=== PATIENT | female | born 1970 | race Caucasian/White ===

== ENCOUNTER 2022-09-28 09:40 | Inpatient (IN) | payer OTHER, SELFPAY ==
[2022-09-28] VITALS (18 sets, daily range): BP systolic 99–139; BP diastolic 59–85; PULSE 105–139; RESP 15–26; TEMP 36.6–38.1; O2SAT 93–100; BMI 35.9
[2022-09-28 10:06] LABS: Add Manual Diff / Slide Review NO; Basophils Absolute Auto 0 /uL (0-100); Basophils Percent Auto 0.1 % (0-2); Eosinophils Absolute Auto 200 /uL (0-450); Eosinophils Percent Auto 1.1 % (2-4); Hematocrit 44.8 % (36-46); Lymphocytes Absolute Auto 500 /uL (1100-4500); Mean Corpuscular HGB Conc 33.6 % (30-36); Mean Corpuscular Volume 86.3 fL (80-100); Monocytes Absolute Auto 900 /uL (0-900); Neutrophils Absolute Auto 21300 /uL (1500-7000); Neutrophils Percent Auto 92.8 % (50-75); Platelet Count 324 X10^3/uL (150-400); Red Blood Cell Count 5.19 X10^6/uL (4.0-5.2); Red Cell Distribution Width 14.2 % (11.6-14.8); White Blood Cell Count 22.9 X10^3/uL (4.5-11.0)
[2022-09-28] MEDS: SODIUM CHLORIDE 0.9% 1,000 ML 1000 ML IV ×3 (10:06→14:39)
[2022-09-28] MEDS: ONDANSETRON 4 MG/2 ML INJ IV ×4 (10:06→21:44)
[2022-09-28 10:18] LABS: Alanine Aminotransferase 54 IU/L (<35); Albumin 4.7 g/dL (3.5-5.0); Albumin Globulin Ratio 1.4 (1.0-2.8); Alkaline Phosphatase 184 U/L (38-126); Aspartate Aminotransferase 52 IU/L (14-36); BUN Creatinine Ratio 26.3 (6-22); Bilirubin Total 0.7 mg/dL (0.2-1.3); Blood Urea Nitrogen 15 mg/dL (7-17); Carbon Dioxide 24 mmol/L (22-32); Chloride 99 mmol/L (98-107); Estimated Glomerular Filt Rate > 60 mL/min (>60); Globulin 3.4 g/dL (1.7-4.1); Glucose 329 mg/dL (70-100); HEMOLYSIS < 15 (0-50); Lipase 171 U/L (23-300); Potassium 3.8 mmol/L (3.4-5.1); Sodium 137 mmol/L (137-145); Total Protein 8.1 g/dL (6.3-8.2)
[2022-09-28 10:32] LABS: COVID19 -Nasal RAPID Negative (Negative)
[2022-09-28 11:30] LABS: Bacteria Urine None Seen; Culture Indicated Urine Cult Not Indicated; RBC Urine None Seen (0-5/HPF); Squamous Epithelial Cell Urine 0-1 /HPF (0-5/HPF); WBC Urine 0-1/HPF (0-5/HPF)
--- NOTE | 2022-09-28 12:00 | ED_ITS ---
HPI - General Adult General Chief complaint: Diabetic Problem Stated complaint: N high sugar rapid heartbeat Time Seen by Provider: 09/28/22 10:00 Source: patient and family Mode of arrival: Ambulatory History of Present Illness HPI narrative: 52-year-old woman with a history of diabetes currently on [place] [facility] [place]. Notes that she is been eating quite a bit more including sugars while she is been visiting and last night began having significant nausea followed by dramatic vomiting through most of the evening. This morning her blood sugar was in the 300 range and her heart rate was in the 130 range. Her partner brought her in concerned with the blood sugar. She reports some mild diffuse abdominal pain. She notes that the vomiting is bilious this morning. There is no blood. She is not had any diarrhea. Did not complain of headache, fever, cough. She felt she was doing well yesterday. She is had no recent palpitations, chest pain, lower extremity edema. Related Data Allergies Allergy/AdvReac Type Severity Reaction Status Date / Time Penicillins Allergy Rash Verified 09/28/22 09:53 Sulfa (Sulfonamide Allergy Rash Verified 09/28/22 09:53 Antibiotics) Review of Systems Review of Systems Narrative: Remainder of complete review of systems is otherwise unremarkable except for that included in the HPI. Patient History Medical History (Updated 09/28/22 @ 12:25 by Judie Messina MD) Diabetes Social History Smoking Status: Never smoker Smoking Status: Never smoker alcohol intake frequency: a few times a month Substance Use Type: marijuana Exam Initial Vital Signs Initial Vital Signs: Vital Signs Temperature 98 F 09/28/22 09:50 Pulse Rate 139 H 09/28/22 09:50 Respiratory Rate 23 09/28/22 09:50 Blood Pressure 139/85 09/28/22 09:50 Pulse Oximetry 99 09/28/22 09:50 Oxygen Delivery Method 09/28/22 09:50 General: Appears to feel unwell slightly flushed but not in acute distress. Able to give a complete and coherent history. Well-nourished well-developed HEENT: Dry mucous membranes, normal sclera with reactive pupils, Neck: No JVD, supple Respiratory: Lungs are clear to auscultation, no wheezing no rales no rhonchi. Full and symmetrical air movement Cardiac: Regular rate and rhythm no murmurs no bruits Abdomen: Soft, mild diffuse tenderness without rebound or guarding, good bowel tones, no flank pain Skin: Warm and dry, no rashes Neurologic: Grossly neurologically intact with no obvious asymmetries or abnormalities Extremities: No trauma, well perfused Psych: Cooperative, appropriate insight and affect Course Orders Ordered: ED Orders 09/28/22 09:53 EKG-12 Lead Stat 09/28/22 10:03 Complete Blood Count AUTO DIFF Stat Comprehensive Metabolic Panel Stat Lipase Stat 09/28/22 10:14 COVID19 -Nasal RAPID/Pre-Proc Stat 09/28/22 11:21 Urine Microscopic Stat 09/28/22 12:09 CT abdomen pelvis w con Stat XR chest 1V Stat Lipase Stat Troponin I Stat 09/28/22 12:17 Respiratory Panel (Film Array) Stat 09/28/22 12:45 Blood Culture Stat 09/28/22 12:52 Lactate (Lactic Acid) Stat Sodium Chloride (Normal Saline 0.9%) 1,000 mls @ 1,000 mls/hr IV BOLUS ONE Stop: 09/28/22 15:05 Discontinued Medications Sodium Chloride (Normal Saline 0.9%) 1,000 mls @ 1,000 mls/hr IV BOLUS ONE Stop: 09/28/22 10:59 Last Infusion: 09/28/22 10:49 Dose: 0 mls/hr Documented By: Admin: 09/28/22 10:06 Dose: 1,000 mls/hr Documented By: VIVIANE Sodium Chloride (Normal Saline 0.9%) 1,000 mls @ 1,000 mls/hr IV BOLUS ONE Stop: 09/28/22 13:07 Last Admin: 09/28/22 12:31 Dose: 1,000 mls/hr Documented By: LAKIA Ceftriaxone Sodium 2,000 mg/ (Sodium Chloride) 100 mls @ 200 mls/hr IV NOW ONE Stop: 09/28/22 13:22 Last Admin: 09/28/22 13:34 Dose: 200 mls/hr Documented By: LAKIA Metronidazole (Flagyl) 500 mg in 100 mls @ 100 mls/hr IV NOW ONE Stop: 09/28/22 14:20 Ondansetron HCl (Ondansetron 4 Mg/2 Ml Inj) 4 mg IV NOW ONE Stop: 09/28/22 10:01 Last Admin: 09/28/22 10:06 Dose: 4 mg Documented By: VIVIANE Ondansetron HCl (Ondansetron 4 Mg/2 Ml Inj) 4 mg IV NOW ONE Stop: 09/28/22 14:07 Last Admin: 09/28/22 14:21 Dose: 4 mg Documented By: LAKIA Pantoprazole Sodium (Pantoprazole 40 Mg Vial) 40 mg IV NOW ONE Stop: 09/28/22 14:07 Last Admin: 09/28/22 14:21 Dose: 40 mg Documented By: LAKIA Vital Signs Vital signs: Vital Signs - 8 hr 09/28/22 09:50 09/28/22 09:57 09/28/22 10:00 Temperature 98 F Pulse Rate 139 H 123 H Respiratory Rate 23 23 Blood Pressure 139/85 137/77 Pulse Oximetry 99 100 Oxygen Delivery Method Room Air 09/28/22 10:00 09/28/22 10:30 09/28/22 10:30 Temperature Pulse Rate 126 H 115 H Respiratory Rate 15 16 Blood Pressure 135/65 Pulse Oximetry 99 93 Oxygen Delivery Method 09/28/22 12:01 09/28/22 12:01 09/28/22 12:34 Temperature 99.5 F Pulse Rate 114 H 111 H Respiratory Rate 26 H Blood Pressure 129/65 Pulse Oximetry 96 Oxygen Delivery Method Room Air 09/28/22 12:59 09/28/22 12:59 09/28/22 13:00 Temperature Pulse Rate 110 H Respiratory Rate 24 Blood Pressure 109/62 108/59 L Pulse Oximetry 97 Oxygen Delivery Method 09/28/22 13:00 09/28/22 13:30 09/28/22 13:30 Temperature Pulse Rate 108 H 113 H Respiratory Rate 16 25 H Blood Pressure 110/60 Pulse Oximetry 97 95 Oxygen Delivery Method 09/28/22 14:00 09/28/22 14:00 09/28/22 14:30 Temperature Pulse Rate 113 H Respiratory Rate 20 Blood Pressure 119/64 119/63 Pulse Oximetry 97 Oxygen Delivery Method 09/28/22 14:30 Temperature Pulse Rate 108 H Respiratory Rate 16 Blood Pressure Pulse Oximetry 97 Oxygen Delivery Method Room Air Medical Decision Making Lab Data Result diagrams: 09/28/22 10:03 09/28/22 10:03 Labs: Lab Results 09/28/22 09/28/22 09/28/22 Range/Units 10:03 10:03 10:14 WBC 22.9 H (4.5-11.0) X10^3/uL RBC 5.19 (4.0-5.2) X10^6/uL Hgb 15.0 (12.0-16.0) g/dL Hct 44.8 (36-46) % MCV 86.3 (80-100) fL MCH 29.0 (26-34) PG MCHC 33.6 (30-36) % RDW 14.2 (11.6-14.8) % Plt Count 324 (150-400) X10^3/uL Neut % (Auto) 92.8 H (50-75) % Lymph % (Auto) 2.0 L (25-40) % [place] % (Auto) 4.0 (3-14) % Eos % (Auto) 1.1 L (2-4) % Baso % (Auto) 0.1 (0-2) % Neut # (Auto) 59260 H (7180-0121) /uL Lymph # (Auto) 500 L (6399-2937) /uL [place] # (Auto) 900 (0-900) /uL Eos # (Auto) 200 (0-450) /uL Baso # (Auto) 0 (0-100) /uL Sodium 137 (137-145) mmol/L Potassium 3.8 (3.4-5.1) mmol/L Chloride 99 (98-107) mmol/L Carbon Dioxide 24 (22-32) mmol/L BUN 15 (7-17) mg/dL Creatinine 0.57 (0.52-1.04) mg/dL Estimated GFR > 60 (>60) mL/min BUN/Creatinine Ratio 26.3 H (6-22) Glucose 329 H (70-100) mg/dL Lactate (0.7-2.1) mmol/L Calcium 9.0 (8.4-10.2) mg/dL Total Bilirubin 0.7 (0.2-1.3) mg/dL AST 52 H (14-36) IU/L ALT 54 H (<35) IU/L Alkaline Phosphatase 184 H (38-126) U/L Total Protein 8.1 (6.3-8.2) g/dL Albumin 4.7 (3.5-5.0) g/dL Globulin 3.4 (1.7-4.1) g/dL Albumin/Globulin Ratio 1.4 (1.0-2.8) Lipase 171 (23-300) U/L Urine RBC (0-5/HPF) Urine WBC (0-5/HPF) Ur Squamous Epith Cells (0-5/HPF) Urine Bacteria (None) Ur Culture Indicated? Chlamy pneumoniae PCR (Not Detect) Adenovirus (PCR) (Not Detect) B. pertussis DNA (PCR) (Not Detecte) B.parapertussis DNA PCR (Not Detecte) Coronavirus OC43 (PCR) (Not Detect) Coronavirus HKU1 (PCR) (Not Detect) Coronavirus 229E (PCR) (Not Detect) SARS-CoV-2 (PCR) Negative (Negative) Coronavirus NL63 (PCR) (Not Detect) Human Metapneumovir PCR (Not Detect) Influenza Type A (PCR) (Not Detect) Influenza Type B (PCR) (Not Detect) M. pneumoniae (PCR) (Not Detect) Parainfluenza 1 (PCR) (Not Detect) Parainfluenza 2 (PCR) (Not Detect) Parainfluenza 3 (PCR) (Not Detect) Parainfluenza 4 (PCR) (Not Detect) RSV (PCR) (Not Detect) Entero/Rhino (PCR) (Not Detect) 09/28/22 09/28/22 09/28/22 Range/Units 11:21 12:17 12:52 WBC (4.5-11.0) X10^3/uL RBC (4.0-5.2) X10^6/uL Hgb (12.0-16.0) g/dL Hct (36-46) % MCV (80-100) fL MCH (26-34) PG MCHC (30-36) % RDW (11.6-14.8) % Plt Count (150-400) X10^3/uL Neut % (Auto) (50-75) % Lymph % (Auto) (25-40) % [place] % (Auto) (3-14) % Eos % (Auto) (2-4) % Baso % (Auto) (0-2) % Neut # (Auto) (8231-2908) /uL Lymph # (Auto) (5624-5812) /uL [place] # (Auto) (0-900) /uL Eos # (Auto) (0-450) /uL Baso # (Auto) (0-100) /uL Sodium (137-145) mmol/L Potassium (3.4-5.1) mmol/L Chloride (98-107) mmol/L Carbon Dioxide (22-32) mmol/L BUN (7-17) mg/dL Creatinine (0.52-1.04) mg/dL Estimated GFR (>60) mL/min BUN/Creatinine Ratio (6-22) Glucose (70-100) mg/dL Lactate 2.4 H (0.7-2.1) mmol/L Calcium (8.4-10.2) mg/dL Total Bilirubin (0.2-1.3) mg/dL AST (14-36) IU/L ALT (<35) IU/L Alkaline Phosphatase (38-126) U/L Total Protein (6.3-8.2) g/dL Albumin (3.5-5.0) g/dL Globulin (1.7-4.1) g/dL Albumin/Globulin Ratio (1.0-2.8) Lipase (23-300) U/L Urine RBC None seen (0-5/HPF) Urine WBC 0-1/hpf (0-5/HPF) Ur Squamous Epith Cells 0-1 /hpf (0-5/HPF) Urine Bacteria None seen (None) Ur Culture Indicated? Cult not indicated Chlamy pneumoniae PCR Not detected (Not Detect) Adenovirus (PCR) Not detected (Not Detect) B. pertussis DNA (PCR) Not detected (Not Detecte) B.parapertussis DNA PCR Not detected (Not Detecte) Coronavirus OC43 (PCR) Not detected (Not Detect) Coronavirus HKU1 (PCR) Not detected (Not Detect) Coronavirus 229E (PCR) Not detected (Not Detect) SARS-CoV-2 (PCR) Not detected (Negative) Coronavirus NL63 (PCR) Not detected (Not Detect) Human Metapneumovir PCR Not detected (Not Detect) Influenza Type A (PCR) Not detected (Not Detect) Influenza Type B (PCR) Not detected (Not Detect) M. pneumoniae (PCR) Not detected (Not Detect) Parainfluenza 1 (PCR) Not detected (Not Detect) Parainfluenza 2 (PCR) Not detected (Not Detect) Parainfluenza 3 (PCR) Not detected (Not Detect) Parainfluenza 4 (PCR) Not detected (Not Detect) RSV (PCR) Not detected (Not Detect) Entero/Rhino (PCR) Not detected (Not Detect) Point of Care Testing Glucose POC 266 Urine Dip Bedside Urine Glucose 1000 mg/dl Bedside Urine Bilirubin - Negative Bedside Urine Ketone + 15 Urine Specific [place] 1.015 Bedside Urine Occult Blood - Negative Bedside Urine pH 6.0 Bedside Urine Protein - Negative Bedside Urine Urobilinogen - Negative Bedside Urine Nitrite - Negative Bedside Urine Leukocytes - Negative Esterase Point of care testing: Point of Care Testing Glucose POC 266 Urine Dip Bedside Urine Glucose 1000 mg/dl Bedside Urine Bilirubin - Negative Bedside Urine Ketone + 15 Urine Specific [place] 1.015 Bedside Urine Occult Blood - Negative Bedside Urine pH 6.0 Bedside Urine Protein - Negative Bedside Urine Urobilinogen - Negative Bedside Urine Nitrite - Negative Bedside Urine Leukocytes - Negative Esterase Imaging Data CT scan - abdomen/pelvis: Radiologist's Impression: FINDINGS:? Image quality:? Excellent.? ? Lung bases:? Unremarkable.? ? Heart:? No significant findings. ? ? ABDOMEN: Liver:? The liver appears abnormal, with a nodular appearance.? The liver over all demonstrates low-density.? No frankly suspicious liver masses are seen. Gallbladder:? Unremarkable.? ? Biliary ducts:? Unremarkable.? ? Pancreas:? Unremarkable.? ? Spleen:? Unremarkable.? ? Adrenal Glands:? Unremarkable.? ? Kidneys and Ureters:? Unremarkable.? ? ? Stomach and Bowel:? The proximal small bowel loops are abnormal, with wall thickening and hyperenhancement.? Small bowel loops are seen measuring up to 3.4 cm. More distally, there is wall thickening seen, without dilatation.? No transition point is seen. There is wall thickening seen involving the sigmoid colon and the descending colon.? No significant inflammatory change can be seen adjacent to the sigmoid colon.? Diverticula formation can be seen within this region. No significant additional colonic abnormality can be seen. No significant gastric abnormality is seen. No appendix (either normal or abnormal) is identified on this study.? Peritoneum:? No abnormal intraperitoneal fluid.? No free air.? ? Ventral Wall: ? No hernia.? Abdominal Nodes:? No retroperitoneal or mesenteric adenopathy by size criteria.? Vessels:? Aorta and inferior vena cava are normal in size.? Atherosclerotic calcification is noted.? ? PELVIS: Pelvic Organs:? Unremarkable.? ? Bladder:? Unremarkable.? ? Pelvic Nodes: No enlarged lymph nodes.? Miscellaneous:? Fat containing inguinal hernias are seen, as on series 2, image 82. ? Bones:? Focal L2-L3 degenerative change is seen.? Milder degenerative changes are seen elsewhere.? ? ? IMPRESSION:? ? Abnormal appearing small bowel, particularly proximally.? There is suspicion for enteritis. ? There is wall thickening seen involving the descending colon and the sigmoid colon.? Additional colitis is suspected.? Please correlate with infectious and inflammatory causes of colitis.? There are distal colonic diverticula formation, although the involved region of the colon is broader than is typically seen in diverticulitis. ? Abnormal appearing liver, with a nodular appearance.? Cirrhosis is suspected.? No focal suspicious liver lesion is seen on this study. ? ? ? Incidental note is made of: Focal L2-L3 degenerative change Mild bilateral fat containing inguinal hernias ? ? Dictated by: Erlin Ybarra M.D. on 09/28/2022 at 11:54 ? ? Chest x-ray: Radiologist's Impression: FINDINGS:? ? Surgical changes and devices:? None.? ? Lungs and pleura:? Lungs are clear.? No pleural effusions or pneumothorax.? ? Mediastinum:? Mediastinal contours appear normal.? Heart size is normal.? ? Bones and chest wall:? No suspicious bony lesions.? Age-appropriate bony degenerative changes are seen. ? Overlying soft tissues appear unremarkable.? ? ? IMPRESSION:? Clear lungs, without infiltrates. ? ? Dictated by: Erlin Ybarra M.D. on 09/28/2022 at 11:35 ? ? ECG Data Interpretation: Sinus tachycardia at 120 Normal intervals, normal axis No acute ischemic changes MDM Narrative Medical decision making narrative: 52-year-old woman with history of diabetes presents with acute onset abdominal pain significant vomiting with noted leukocytosis greater than 22,000. She is some minor abdominal tenderness. No evidence of pneumonia or pulmonary involvement. No suggestion of urinary tract infection. CT scan shows an enteritis with dilated small bowel loops. There is thickening within the sigmoid and descending colon without specific discussion of acute diverticulitis and specifically mentioning no inflammatory changes adjacent to the sigmoid colon. Nausea has been controlled with Zofran, she is on her 2 L of fluid. Lactic acid after initial 1 L of fluid is 2.4. With serous criteria being met but not meeting criteria for severe sepsis or septic shock will go ahead and begin ceftriaxone and metronidazole (penicillin allergy) for presumed GI infection. viral panel is pending at this time. Viral panel is negative. Still mild tachycardia, will contiue with fluids. Protonix for complaints of heartburn. Reviewed with hospitalist. Will admit obs status overnight for continued fluid, manangement of nausea and further evaluation Discharge Plan Departure Patient Disposition: Admitted as Observation Referrals: Miscellaneous,MD Bharti [Primary Care Provider] - Admit Date/Time: 09/28/22 14:44
--- NOTE | 2022-09-28 12:09 | DI.CT.S_ITS ---
PROCEDURE: CT ABDOMEN PELVIS W CON INDICATIONS: abdominal pain and leukocytosis TECHNIQUE: After the administration of IV contrast, axial sections were acquired from the lung bases to the pubic symphysis. Coronal and sagittal reformats were performed. For radiation dose reduction, the following was used: automated exposure control, adjustment of mA and/or kV according to patient size. COMPARISON: [facility], CR, XR CHEST 1V, 09/28/2022, 12:10. FINDINGS: Image quality: Excellent. Lung bases: Unremarkable. Heart: No significant findings. ABDOMEN: Liver: The liver appears abnormal, with a nodular appearance. The liver overall demonstrates low-density. No frankly suspicious liver masses are seen. Gallbladder: Unremarkable. Biliary ducts: Unremarkable. Pancreas: Unremarkable. Spleen: Unremarkable. Adrenal Glands: Unremarkable. Kidneys and Ureters: Unremarkable. Stomach and Bowel: The proximal small bowel loops are abnormal, with wall thickening and hyperenhancement. Small bowel loops are seen measuring up to 3.4 cm. More distally, there is wall thickening seen, without dilatation. No transition point is seen. There is wall thickening seen involving the sigmoid colon and the descending colon. No significant inflammatory change can be seen adjacent to the sigmoid colon. Diverticula formation can be seen within this region. No significant additional colonic abnormality can be seen. No significant gastric abnormality is seen. No appendix (either normal or abnormal) is identified on this study. Peritoneum: No abnormal intraperitoneal fluid. No free air. Ventral Wall: No hernia. Abdominal Nodes: No retroperitoneal or mesenteric adenopathy by size criteria. Vessels: Aorta and inferior vena cava are normal in size. Atherosclerotic calcification is noted. PELVIS: Pelvic Organs: Unremarkable. Bladder: Unremarkable. Pelvic Nodes: No enlarged lymph nodes. Miscellaneous: Fat containing inguinal hernias are seen, as on series 2, image 82. Bones: Focal L2-L3 degenerative change is seen. Milder degenerative changes are seen elsewhere. IMPRESSION: Abnormal appearing small bowel, particularly proximally. There is suspicion for enteritis. There is wall thickening seen involving the descending colon and the sigmoid colon. Additional colitis is suspected. Please correlate with infectious and inflammatory causes of colitis. There are distal colonic diverticula formation, although the involved region of the colon is broader than is typically seen in diverticulitis. Abnormal appearing liver, with a nodular appearance. Cirrhosis is suspected. No focal suspicious liver lesion is seen on this study. Incidental note is made of: Focal L2-L3 degenerative change Mild bilateral fat containing inguinal hernias Dictated by: Erlin Ybarra M.D. on 09/28/2022 at 11:54 Approved by: Erlin Ybarra M.D. on 09/28/2022 at 11:58
--- NOTE | 2022-09-28 12:09 | DI.RAD.S_ITS ---
PROCEDURE: XR CHEST 1V INDICATIONS: leukocytosis TECHNIQUE: One view of the chest was acquired. COMPARISON: None. FINDINGS: Surgical changes and devices: None. Lungs and pleura: Lungs are clear. No pleural effusions or pneumothorax. Mediastinum: Mediastinal contours appear normal. Heart size is normal. Bones and chest wall: No suspicious bony lesions. Age-appropriate bony degenerative changes are seen. Overlying soft tissues appear unremarkable. IMPRESSION: Clear lungs, without infiltrates. Dictated by: Erlin Ybarra M.D. on 09/28/2022 at 11:35 Approved by: Erlin Ybarra M.D. on 09/28/2022 at 11:35
[2022-09-28 13:09] LABS: Lactate (Lactic Acid) 2.4 mmol/L (0.7-2.1)
[2022-09-28 13:32] LABS: Adenovirus Not Detected (Not Detect); B. parapertussis Not Detected (Not Detecte); Bordetella pertussis Not Detected (Not Detecte); Chlamydophila pneumoniae Not Detected (Not Detect); Coronavirus 229E Not Detected (Not Detect); Coronavirus HKU1 Not Detected (Not Detect); Coronavirus NL 63 Not Detected (Not Detect); Coronavirus OC43 Not Detected (Not Detect); Human Metapneumovirus Not Detected (Not Detect); Human Rhinovirus/Enterovirus Not Detected (Not Detect); Influenza A Not Detected (Not Detect); Influenza B Not Detected (Not Detect); Mycoplasma pneumoniae Not Detected (Not Detect); Parainfluenza Virus 1 Not Detected (Not Detect); Parainfluenza Virus 2 Not Detected (Not Detect); Parainfluenza Virus 3 Not Detected (Not Detect); Parainfluenza Virus 4 Not Detected (Not Detect); Respiratory Syncytial Virus Not Detected (Not Detect); SARS- CoV-2 Not Detected (Not Detecte)
[2022-09-28] MEDS: cefTRIAXone 2,000 MG in SODIUM CHLORIDE 0.9% 100 ML 200 MG IV (13:34)
[2022-09-28] MEDS: PANTOPRAZOLE 40 MG VIAL IV (14:21)
[2022-09-28] MEDS: metroNIDAZOLE 500 MG/100 ML PIGGYBACK 100 MG IV ×2 (14:39→21:44)
[2022-09-28 14:55] LABS: Reflexed Lactate in 2 Hours Y
[2022-09-28 15:29] LABS: Lactate 2HR (Lactic Acid Rflx) 2.3 mmol/L (0.7-2.1)
[2022-09-28] MEDS: ACETAMINOPHEN 325 MG TABLET 975 MG PO (16:32)
--- NOTE | 2022-09-28 16:40 | P.HP_ITS ---
History of Present Illness History of Present Illness Date Patient Seen: 09/28/22 Time Patient Seen: 17:15 Chief complaint: N high sugar rapid heartbeat Narrative: 52 year old female with type 2 diabetes and prior diverticulitis who presents with lower abdominal pain and emesis for the past day. She ate a couple of donuts from [employer] here locally, along with a couple of salads the last couple of days while [place] from [place]. Overnight she developed nausea and NBNB emesis (clear to yellow), and later diarrhea. She also reports 8/10 bilateral lower abdominal pain. Pain is described as achy, worsened with food intake and even water intake, improved only with some pain medications thus far. With the emesis she did develop a burning epigastric pain as well. Diarrhea has been watery, no blood. She further reports off and on emesis over the past few months, primarily after large meals but sometimes not related. She also with this has had loose stools and less severe lower abdominal pain over the past two months. She developed some headache today, along with chills but no overt fever. No one else has been sick around her and her spouse ate the same meal and is not feeling ill. She reports palpitations primarily when vomiting, but no chest pain or shortness of breath. She feels a bit better after nausea medications and was able to keep some water down and medications. In the emergency room, patient was mildly tachycardic but the remainder of her vitals were unremarkable. Tempature was 100.2 on arrival to the hospital floor. Lab evaluation was notable for WBC 22.9 with 93% neutrophils. Chemistries were notable for glucose 329, LA 2.4 after IV fluids had been given, mild transaminitis with AST 52, ALT 54. Lipase was 171. UA was not indicative of infection. Respiratory panel was negative. CT scan showed diffuse both colitis and enteritis and diverticulae. Patient was admitted for further monitoring given tachycardia, inability to tolerate much oral intake, and risk for worsening illness. Patient History Medical History Diabetes Diverticulitis Surgical History H/O exploratory laparotomy History of 2 sections Family & Social History Family History Mother Cancer Grandmother Diverticulitis Safety & Behavioral: Feels Safe in Current Yes Environment Been Physically Hurt or No Threatened By a Person Tobacco & Substance use: Smoking Status Never smoker alcohol intake frequency a few times a month Substance Use Type marijuana Meds Home Medications and Allergies Home Medications Medication Instructions Recorded Confirmed Type atorvastatin 40 mg tablet 40 mg PO DAILY 09/28/22 09/28/22 History liraglutide 0.6 mg/0.1 mL (18 mg/3 1.8 mg SUBCUT DAILY 09/28/22 09/28/22 History mL) subcutaneous pen injector (Victoza 3-Iggy) lisinopril 5 mg tablet 5 mg PO DAILY 09/28/22 09/28/22 History metformin 1,000 mg tablet 1,000 mg PO BID 09/28/22 09/28/22 History paroxetine HCl 10 mg tablet 10 mg PO DAILY 09/28/22 09/28/22 History Allergies Allergy/AdvReac Type Severity Reaction Status Date / Time Penicillins Allergy Rash Verified 09/28/22 09:53 Sulfa (Sulfonamide Allergy Rash Verified 09/28/22 09:53 Antibiotics) Review of Systems Review of Systems Narrative: All other systems reviewed with the patient and are negative unless otherwise stated. She does endorse mild skin rash / fungal in addition to HPI Exam Vital Signs (past 8 hours): - 09/28/22 09:50 09/28/22 09:57 09/28/22 10:00 Temperature 98 F Pulse Rate 139 H 123 H Respiratory Rate 23 23 Blood Pressure 139/85 137/77 Pulse Oximetry 99 100 Oxygen Delivery Method Room Air Oxygen Flow Rate 09/28/22 10:00 09/28/22 10:30 09/28/22 10:30 Temperature Pulse Rate 126 H 115 H Respiratory Rate 15 16 Blood Pressure 135/65 Pulse Oximetry 99 93 Oxygen Delivery Method Oxygen Flow Rate 09/28/22 12:01 09/28/22 12:01 09/28/22 12:34 Temperature 99.5 F Pulse Rate 114 H 111 H Respiratory Rate 26 H Blood Pressure 129/65 Pulse Oximetry 96 Oxygen Delivery Method Room Air Oxygen Flow Rate 09/28/22 12:59 09/28/22 12:59 09/28/22 13:00 Temperature Pulse Rate 110 H Respiratory Rate 24 Blood Pressure 109/62 108/59 L Pulse Oximetry 97 Oxygen Delivery Method Oxygen Flow Rate 09/28/22 13:00 09/28/22 13:30 09/28/22 13:30 Temperature Pulse Rate 108 H 113 H Respiratory Rate 16 25 H Blood Pressure 110/60 Pulse Oximetry 97 95 Oxygen Delivery Method Oxygen Flow Rate 09/28/22 14:00 09/28/22 14:00 09/28/22 14:30 Temperature Pulse Rate 113 H Respiratory Rate 20 Blood Pressure 119/64 119/63 Pulse Oximetry 97 Oxygen Delivery Method Oxygen Flow Rate 09/28/22 14:30 09/28/22 15:00 09/28/22 15:00 Temperature Pulse Rate 108 H 111 H Respiratory Rate 16 25 H Blood Pressure 105/73 Pulse Oximetry 97 98 Oxygen Delivery Method Room Air Room Air Oxygen Flow Rate 09/28/22 15:47 09/28/22 16:22 Temperature 100.2 F H Pulse Rate 110 H Respiratory Rate 20 Blood Pressure 103/59 L Pulse Oximetry 97 100 Oxygen Delivery Method Room Air Oxygen Flow Rate 0 Oxygen Delivery Method Room Air Oxygen Flow Rate 0 Narrative Exam Narrative: General:? Patient is well developed and well nourished, in no distress at this t sharif but is mildly ill appearing. HEENT:? Normocephalic, atraumatic, extraocular muscles intact, oral pharynx is clear and mucous membranes are dry, Neck: supple and symmetric, trachea is midline, no cervical adenopathy. Negative for JVD Chest:? Normal AP diameter and contour without kyphoscoliosis, no tachypnea, equal chest rise bilaterally. Lungs:? CTA b/l no wheezing rhonchi or rales. Cardio:?tachycardic but regular rhythm no m/r/g. Abdomen: soft, bilateral lower quadrant tenderness, moderate, with mild lower abdominal distension. Active bowel tones. Musculoskeletal:? Muscle strength and tone are equal within normal limits, no deformity. Extremities: No edema or joint effusions. No cyanosis or clubbing. Skin:? Pale,? Warm to touch,dry and intact without rashes, ulcerations or petechiae except for mild fungal rash suprapubic abdominal area, about 2-3 cm in diameter Neuro:? Alert and orientated x3,? sensation to touch intact in all extremities, no gross deficits noted of cranial nerves. Psych:? Patient has a well-kept appearance, appropriate affect, mental status attitude thought context and judgment are appropriate for age. Objective ECG Impression: Sinus tachycardia as interpreted by me. Imaging CT scan - abdomen: Radiologist's impression: Abnormal appearing small bowel, particularly proximally.? There is suspicion for enteritis. ? There is wall thickening seen involving the descending colon and the sigmoid colon.? Additional colitis is suspected.? Please correlate with infectious and inflammatory causes of colitis.? There are distal colonic diverticula formation, although the involved region of the colon is broader than is typically seen in diverticulitis. ? Abnormal appearing liver, with a nodular appearance.? Cirrhosis is suspected.? No focal suspicious liver lesion is seen on this study. Labs Result Diagrams: 09/28/22 10:03 09/28/22 10:03 Labs: Laboratory Results - last 24 hr 09/28/22 09/28/22 09/28/22 10:03 10:03 10:14 WBC 22.9 H RBC 5.19 Hgb 15.0 Hct 44.8 MCV 86.3 MCH 29.0 MCHC 33.6 RDW 14.2 Plt Count 324 Neut % (Auto) 92.8 H Lymph % (Auto) 2.0 L [place] % (Auto) 4.0 Eos % (Auto) 1.1 L Baso % (Auto) 0.1 Neut # (Auto) 13970 H Lymph # (Auto) 500 L [place] # (Auto) 900 Eos # (Auto) 200 Baso # (Auto) 0 Sodium 137 Potassium 3.8 Chloride 99 Carbon Dioxide 24 BUN 15 Creatinine 0.57 Estimated GFR > 60 BUN/Creatinine Ratio 26.3 H Glucose 329 H Lactate Calcium 9.0 Total Bilirubin 0.7 AST 52 H ALT 54 H Alkaline Phosphatase 184 H Total Protein 8.1 Albumin 4.7 Globulin 3.4 Albumin/Globulin Ratio 1.4 Lipase 171 Urine RBC Urine WBC Ur Squamous Epith Cells Urine Bacteria Ur Culture Indicated? Chlamy pneumoniae PCR Adenovirus (PCR) B. pertussis DNA (PCR) B.parapertussis DNA PCR Coronavirus OC43 (PCR) Coronavirus HKU1 (PCR) Coronavirus 229E (PCR) SARS-CoV-2 (PCR) Negative Coronavirus NL63 (PCR) Human Metapneumovir PCR Influenza Type A (PCR) Influenza Type B (PCR) M. pneumoniae (PCR) Parainfluenza 1 (PCR) Parainfluenza 2 (PCR) Parainfluenza 3 (PCR) Parainfluenza 4 (PCR) RSV (PCR) Entero/Rhino (PCR) 09/28/22 09/28/22 09/28/22 11:21 12:17 12:52 WBC RBC Hgb Hct MCV MCH MCHC RDW Plt Count Neut % (Auto) Lymph % (Auto) [place] % (Auto) Eos % (Auto) Baso % (Auto) Neut # (Auto) Lymph # (Auto) [place] # (Auto) Eos # (Auto) Baso # (Auto) Sodium Potassium Chloride Carbon Dioxide BUN Creatinine Estimated GFR BUN/Creatinine Ratio Glucose Lactate 2.4 H Calcium Total Bilirubin AST ALT Alkaline Phosphatase Total Protein Albumin Globulin Albumin/Globulin Ratio Lipase Urine RBC None seen Urine WBC 0-1/hpf Ur Squamous Epith Cells 0-1 /hpf Urine Bacteria None seen Ur Culture Indicated? Cult not indicated Chlamy pneumoniae PCR Not detected Adenovirus (PCR) Not detected B. pertussis DNA (PCR) Not detected B.parapertussis DNA PCR Not detected Coronavirus OC43 (PCR) Not detected Coronavirus HKU1 (PCR) Not detected Coronavirus 229E (PCR) Not detected SARS-CoV-2 (PCR) Not detected Coronavirus NL63 (PCR) Not detected Human Metapneumovir PCR Not detected Influenza Type A (PCR) Not detected Influenza Type B (PCR) Not detected M. pneumoniae (PCR) Not detected Parainfluenza 1 (PCR) Not detected Parainfluenza 2 (PCR) Not detected Parainfluenza 3 (PCR) Not detected Parainfluenza 4 (PCR) Not detected RSV (PCR) Not detected Entero/Rhino (PCR) Not detected 09/28/22 15:00 WBC RBC Hgb Hct MCV MCH MCHC RDW Plt Count Neut % (Auto) Lymph % (Auto) [place] % (Auto) Eos % (Auto) Baso % (Auto) Neut # (Auto) Lymph # (Auto) [place] # (Auto) Eos # (Auto) Baso # (Auto) Sodium Potassium Chloride Carbon Dioxide BUN Creatinine Estimated GFR BUN/Creatinine Ratio Glucose Lactate 2.3 H Calcium Total Bilirubin AST ALT Alkaline Phosphatase Total Protein Albumin Globulin Albumin/Globulin Ratio Lipase Urine RBC Urine WBC Ur Squamous Epith Cells Urine Bacteria Ur Culture Indicated? Chlamy pneumoniae PCR Adenovirus (PCR) B. pertussis DNA (PCR) B.parapertussis DNA PCR Coronavirus OC43 (PCR) Coronavirus HKU1 (PCR) Coronavirus 229E (PCR) SARS-CoV-2 (PCR) Coronavirus NL63 (PCR) Human Metapneumovir PCR Influenza Type A (PCR) Influenza Type B (PCR) M. pneumoniae (PCR) Parainfluenza 1 (PCR) Parainfluenza 2 (PCR) Parainfluenza 3 (PCR) Parainfluenza 4 (PCR) RSV (PCR) Entero/Rhino (PCR) Assessment & Plan Assessment & Plan narrative: 1. Diverticulitis and enteritis - suspect diverticulitis leading to symptoms over the past two months, and likely acute enteritis recently. - will treat with cipro/flagyl for now given likely diverticulitis, tachycardia, and leukocytosis. unclear if enteritis is bacterial or viral at this time. She reports penicillin allergy. - check GI panel given diarrhea, no recent antibiotics or C. diff risk factors. - may have a component of gastroparesis, but reports recent A1c of 7.6. - continue symptom relief with pain and nausea medications. - elevated lactate likely in setting of liver dysfunction and metformin use. s/p 3L of NS in ER, continue NS @ 100 cc per hour. - hold home lisinopril for now. 2. type 2 diabetes - hold home metformin, victoza, and lisinopril - start 5 U lantus tonight, and sliding scale - okay for diabetic diet or as much as she can tolerate - hold home statin given transaminitis for now. 3. Transaminitis - unclear if reactive to acute infection, or chronicity. - continue to follow. continue hydration. 4. Obesity with BMI 35.9 - increases patient's risk of morbidity and mortality from her acute illness and contributes to diabetes - will order nutrition consultation for obesity and diabetes education. Code: Full, surrogate evelyn alegre DVT: Lovenox daily Dispo: hopeful for discharge home tomorrow, admit observation but will depend on symptoms and markers of infection. I have utilized all available immediate resources to obtain, update, or review the patient's current medications. COVID-19 COVID-19 status: Negative Time Spent With Patient Critical Care time: I spent a total of [] minutes of critical care time on this patient's care today; this time is exclusive of procedural time. Quality MIPS - Admit I confirm the patient?s Advance Care Plan is present, Code status is documented, Surrogate decision maker is in patient?s record [If Yes, STOP here]: Yes
[2022-09-28] MEDS: INSULIN LISPRO 100 UNIT/ML 3ML VIAL SUBCUT (18:09)
[2022-09-28] MEDS: SODIUM CHLORIDE 0.9% 1,000 ML 100 ML IV (18:09)
--- NOTE | 2022-09-28 19:21 | PC.NURSE ---
Pt arrived from ED at 1530, A&Ox4, able to ambulate from stretcher to bed SBA. C/o headache 04/25, body ache and nausea. PRN meds administered per JAN. Lung sounds cta, bowel tones present, CMS intact. Pt oriented to call light and room.
[2022-09-28 20:17] LABS: Campylobacter Not Detected (Not Detect); Clostridium difficile toxin AB Detected (Not Detect); Enteroaggregative E.coli Not Detected (Not Detect); Enteropathogenic E.coli Not Detected (Not Detect); Enterotoxigenic E.coli It/st Not Detected (Not Detect); Plesiomonsa shigelloides Not Detected (Not Detect); Salmonella Not Detected (Not Detect); Shiga-like toxin-prod E.coli Not Detected (Not Detect); Vibrio Not Detected (Not Detect); Vibrio cholerae Not Detected (Not Detect); Yersinia enterocolitica Not Detected (Not Detect)
[2022-09-28 20:18] LABS: Adenovirus F 40/41 Not Detected (Not Detect); Astrovirus Not Detected (Not Detect); Cryptosporidium Not Detected (Not Detect); Cyclospora cayetanensis Not Detected (Not Detect); Entamoeba histolytica Not Detected (Not Detect); Giardia lamblia Not Detected (Not Detect); Norovirus GI/GII Detected (Not Detect); Rotavirus A Not Detected (Not Detect); Sapovirus Not Detected (Not Detect); Shigella/Enteroinvasive E.coli Not Detected (Not Detect)
[2022-09-28] MEDS: OXYCODONE IR 5 MG TABLET PO (21:44)
[2022-09-28] MEDS: INSULIN GLARGINE 100 UNIT/ML 3ML PEN SUBCUT (21:44)
[2022-09-28 22:38] LABS: Troponin I < 0.012 ng/mL (0.01-0.034)
[2022-09-29] VITALS (11 sets, daily range): BP systolic 105–150; BP diastolic 51–84; PULSE 77–101; RESP 17–22; TEMP 36.1–37.3; O2SAT 97–100
[2022-09-29] MEDS: ACETAMINOPHEN 325 MG TABLET 975 MG PO ×2 (00:35→20:30)
--- NOTE | 2022-09-29 01:14 | PC.NURSE ---
Pt was shivering and stating she was cold, T 98.3. T increased to 100.6, pt hot and uncomfortable. Retaken T 98.8, tylenol and ice pack given per pt request.
[2022-09-29] MEDS: VANCOMYCIN 125 MG CAPSULE PO ×4 (03:59→22:18)
[2022-09-29] MEDS: SODIUM CHLORIDE 0.9% 1,000 ML 100 ML IV (05:19)
[2022-09-29 06:07] LABS: Add Manual Diff / Slide Review NO; Basophils Absolute Auto 0 /uL (0-100); Basophils Percent Auto 0.1 % (0-2); Eosinophils Absolute Auto 100 /uL (0-450); Eosinophils Percent Auto 1.3 % (2-4); Hematocrit 31.8 % (36-46); Hemoglobin 10.8 g/dL (12.0-16.0); Lymphocytes Absolute Auto 900 /uL (1100-4500); Lymphocytes Percent Auto 12.4 % (25-40); Mean Corpuscular HGB Conc 33.8 % (30-36); Mean Corpuscular Hemoglobin 29.1 PG (26-34); Mean Corpuscular Volume 86.1 fL (80-100); Monocytes Absolute Auto 500 /uL (0-900); Monocytes Percent Auto 6.9 % (3-14); Neutrophils Absolute Auto 5700 /uL (1500-7000); Neutrophils Percent Auto 79.3 % (50-75); Platelet Count 193 X10^3/uL (150-400); Red Blood Cell Count 3.69 X10^6/uL (4.0-5.2); Red Cell Distribution Width 14.3 % (11.6-14.8); White Blood Cell Count 7.2 X10^3/uL (4.5-11.0)
[2022-09-29 06:18] LABS: Lactate (Lactic Acid) 0.9 mmol/L (0.7-2.1)
[2022-09-29 06:20] LABS: Alanine Aminotransferase 44 IU/L (<35); Albumin 3.1 g/dL (3.5-5.0); Albumin Globulin Ratio 1.2 (1.0-2.8); Alkaline Phosphatase 83 U/L (38-126); Aspartate Aminotransferase 39 IU/L (14-36); BUN Creatinine Ratio 13.3 (6-22); Bilirubin Total 0.4 mg/dL (0.2-1.3); Blood Urea Nitrogen 6 mg/dL (7-17); Calcium 7.5 mg/dL (8.4-10.2); Carbon Dioxide 23 mmol/L (22-32); Chloride 106 mmol/L (98-107); Estimated Glomerular Filt Rate > 60 mL/min (>60); Globulin 2.6 g/dL (1.7-4.1); Glucose 152 mg/dL (70-100); HEMOLYSIS < 15 (0-50); Magnesium 1.5 mg/dL (1.6-2.3); Potassium 2.9 mmol/L (3.4-5.1); Sodium 136 mmol/L (137-145); Total Protein 5.7 g/dL (6.3-8.2)
[2022-09-29 06:24] LABS: Hemoglobin A1C% w Est Avg Glu 8.4 % (4.0-6.0)
[2022-09-29] MEDS: metroNIDAZOLE 500 MG/100 ML PIGGYBACK 100 MG IV ×3 (06:30→22:19)
[2022-09-29] MEDS: OXYCODONE IR 5 MG TABLET PO ×3 (06:30→17:22)
[2022-09-29] MEDS: POTASSIUM CHLORIDE 20 MEQ TAB 60 MEQ PO (09:17)
[2022-09-29] MEDS: CIPROFLOXACIN 400 MG/200 ML PIGGYBACK 200 MG IV ×2 (09:17→20:30)
[2022-09-29] MEDS: MAGNESIUM CHLORIDE 64 MG TABLET 128 MG PO ×2 (09:18→17:22)
[2022-09-29] MEDS: CLOTRIMAZOLE 1% CRM 30 GM 1 APPLIC TOP (09:18)
[2022-09-29] MEDS: ENOXAPARIN 40 MG/0.4 ML SYRINGE SUBCUT (09:19)
[2022-09-29] MEDS: INSULIN LISPRO 100 UNIT/ML 3ML VIAL SUBCUT ×3 (09:23→17:23)
--- NOTE | 2022-09-29 10:48 | CM.DANOTE ---
Initial Discharge Assessment Note: Case reviewed, met with patient. Introduced self and role. 52 year old diabetic female admitted yesterday with c/o of abdominal pain/emesis. She is visiting here with her partner Gene from [place] and had sudden onset of significant abdominal pain and came to hospital. She has been diagnosed with D-Diff and Norovirus. She continues with diarrhea and K+ is low. She states that pain increases with eating. Patient lives with her partner in [place] and is independent in ADLs and drives. Plan: Return home when medically stable. Continue to follow for needs. [facility] Discharge Planning/Care Management CM Discharge Assessment Start: 09/29/22 10:46 Freq: Status: Active Protocol: Document 09/29/22 10:47 (Rec: 09/29/22 10:48 [id number]) Discharge Planning Assessment Assigned Promotional Advertising Assistant Ivette Rowland RN/DCP Advance Directives? No History Provided By Patient Has Patient been admitted in last 30 No days? Prior Living Arrangements House Household Members significant other Comment Gene Type of transporation used prior to Drives own vehicle admit Independent with ADL's Yes Is patient alert and oriented? Yes Caregiver for Another No Barriers to Discharge No Discharge Plan Home Referrals Initiated None needed Whiteboard Updated in Patient Room with Yes name and ext. # of Promotional Advertising Assistant Review Status In Process Next Review Type Continued Stay Review
--- NOTE | 2022-09-29 11:41 | DIET.CONS ---
Dietary Consultation Note Admission Date: 09/28/2022 14:44 Assessment: 52y F admitted for N/V, hyperglycemia and colitis from diverticulitis referred to nutrition for DM education and obesity (BMI 35.9). Met c pt at bedside. Pt in town visiting from [place], [place]. Pt states issues with stomach over last few months, has been trying to eat salads to be healthier. Pt and spouse ate large apple fritter from [employer] night before hospital admission, was able to take Victoza injection in the morning but no other meds. BG upon admission 329 c A1c 8.4 and WBC 22.9. Pt states abd steam tender, was able to eat >50% breakfast today- no diarrhea, pt feeling urge for BM however. Pt endorses 10% weight loss during first few months of Victoza use, but has plateaued since. Discussed supportive nutrition suggestions upon d/c until pt able to f/u with GI with focus on items easier to digest that won't cause further hyperglycemia. Ht: 154.94 cm Wt: 86.183 kg BMI: 35.9 Last BM: 09/28/22 (09/28/22 15:48) MNA: 12 Karlo Score: 23 Diet: 09/28/22 Dinner Carbohydrate Consistent Diet Diet Modifications: Carbohydrate level: Large (4 CHO) Nutrition Percent Meal Consumed 100% 09/29/22 09:55 Percent Meal Consumed 100% 09/28/22 18:15 Labs: RBC 3.69 X10^6/uL (4.0-5.2) L 09/29/22 05:20 Hgb 10.8 g/dL (12.0-16.0) L 09/29/22 05:20 Hct 31.8 % (36-46) L 09/29/22 05:20 Creatinine 0.45 mg/dL (0.52-1.04) L 09/29/22 05:20 Hemoglobin A1c 8.4 % (4.0-6.0) H 09/29/22 05:20 Lactate 0.9 mmol/L (0.7-2.1) 09/29/22 05:20 Nutrition Diagnosis: altered nutrition related laboratory values (A1c, BG) r/t undesirable food choices and missed medication dose aeb admit BG >300, pt unable to keep metformin down x2 doses r/t N/V, pt endorses eating large apple fritter evening prior to admission. Interventions: 1. Discussed importance of easing into PO intake slowly with intentional intake soft protein foods. Recc yogurt, soft cooked meats, bone broth. Caution with sugar sweetened beverages/confections. If eating vegetables, recc soft cooked vegetables in soups/stews for first few days rather than large salads or crudite. Pt will make shopping list for who does grocery runs so she can take it easy for a few days after d/c. EER: 30-45g CHO/meal Electronically Signed by: Jennifer Waldrop 09/29/22 11:41 Clinical Dietitian [address] [id number]
--- NOTE | 2022-09-29 11:51 | P.PN_ITS ---
Subjective Subjective Date Patient Seen: 09/29/22 Interval history: Patient without diarrhea today, much improved. Panel was positive for C. diff and norovirus. She was hypokalemic today, denies chest pain or palpitations. She still has significant nausea but was able to keep some of her breakfast down. Still feels quite weak. Exam Vital Signs (past 8 hours): - 09/29/22 08:00 Pulse Rate 84 Respiratory Rate 17 Blood Pressure 111/75 Pulse Oximetry 97 Oxygen Flow Rate 0 Oxygen Delivery Method Room Air Oxygen Flow Rate 0 Narrative Exam Narrative: General:? Patient is well developed and well nourished, in no distress at this time but is mildly ill appearing. HEENT:? Normocephalic, atraumatic, extraocular muscles intact, oral pharynx is clear and mucous membranes are dry, Neck: supple and symmetric, trachea is midline, no cervical adenopathy. Negative for JVD Chest:? Normal AP diameter and contour without kyphoscoliosis, no tachypnea, equal chest rise bilaterally. Lungs:? CTA b/l no wheezing rhonchi or rales. Cardio:?tachycardic but regular rhythm no m/r/g. Abdomen: soft, bilateral lower quadrant tenderness, moderate, with mild lower abdominal distension. Active bowel tones. Musculoskeletal:? Muscle strength and tone are equal within normal limits, no deformity. Extremities: No edema or joint effusions. No cyanosis or clubbing. Skin:? Pale,? Warm to touch,dry and intact without rashes, ulcerations or petechiae except for mild fungal rash suprapubic abdominal area, about 2-3 cm in diameter Neuro:? Alert and orientated x3,? sensation to touch intact in all extremities, no gross deficits noted of cranial nerves. Psych:? Patient has a well-kept appearance, appropriate affect, mental status attitude thought context and judgment are appropriate for age. Objective Labs Result Diagrams: 09/29/22 05:20 09/29/22 05:20 Labs: Laboratory Results - last 24 hr 09/28/22 09/28/22 09/28/22 12:17 12:52 12:52 WBC RBC Hgb Hct MCV MCH MCHC RDW Plt Count Neut % (Auto) Lymph % (Auto) [place] % (Auto) Eos % (Auto) Baso % (Auto) Neut # (Auto) Lymph # (Auto) [place] # (Auto) Eos # (Auto) Baso # (Auto) Sodium Potassium Chloride Carbon Dioxide BUN Creatinine Estimated GFR BUN/Creatinine Ratio Glucose Hemoglobin A1c Lactate 2.4 H Calcium Magnesium Total Bilirubin AST ALT Alkaline Phosphatase Troponin I < 0.012 Total Protein Albumin Globulin Albumin/Globulin Ratio Stl C. cayetanensis PCR Stool Rotavirus (PCR) Stool Adenovirus (PCR) Stool Astrovirus (PCR) Stool Cryptosporidium PCR Stl E.coli Shiga Tox PCR St Sh/Enteroin Ecoli PCR Stool E coli O157 PCR Stl Enterotoxigenic E PCR Stool EPEC (PCR) Stl E. histolytica PCR Stool Giardia Lamblia PCR Stool Sapovirus (PCR) Stl P. shigelloides PCR St Y.enterocolitica PCR Stool Vibrio (PCR) Stl Vibrio cholerae PCR Stl Enteroaggr Ecoli PCR Stl Norovirus GI/GII PCR Chlamy pneumoniae PCR Not detected Adenovirus (PCR) Not detected B. pertussis DNA (PCR) Not detected B.parapertussis DNA PCR Not detected Campylobacter (PCR) C. difficile Tox (PCR) Coronavirus OC43 (PCR) Not detected Coronavirus HKU1 (PCR) Not detected Coronavirus 229E (PCR) Not detected SARS-CoV-2 (PCR) Not detected Coronavirus NL63 (PCR) Not detected Human Metapneumovir PCR Not detected Influenza Type A (PCR) Not detected Influenza Type B (PCR) Not detected M. pneumoniae (PCR) Not detected Parainfluenza 1 (PCR) Not detected Parainfluenza 2 (PCR) Not detected Parainfluenza 3 (PCR) Not detected Parainfluenza 4 (PCR) Not detected RSV (PCR) Not detected Entero/Rhino (PCR) Not detected Salmonella (PCR) 09/28/22 09/28/22 09/29/22 15:00 18:39 05:20 WBC 7.2 D RBC 3.69 L Hgb 10.8 L Hct 31.8 L MCV 86.1 MCH 29.1 MCHC 33.8 RDW 14.3 Plt Count 193 Neut % (Auto) 79.3 H Lymph % (Auto) 12.4 L [place] % (Auto) 6.9 Eos % (Auto) 1.3 L Baso % (Auto) 0.1 Neut # (Auto) 5700 Lymph # (Auto) 900 L [place] # (Auto) 500 Eos # (Auto) 100 Baso # (Auto) 0 Sodium Potassium Chloride Carbon Dioxide BUN Creatinine Estimated GFR BUN/Creatinine Ratio Glucose Hemoglobin A1c Lactate 2.3 H Calcium Magnesium Total Bilirubin AST ALT Alkaline Phosphatase Troponin I Total Protein Albumin Globulin Albumin/Globulin Ratio Stl C. cayetanensis PCR Not detected Stool Rotavirus (PCR) Not detected Stool Adenovirus (PCR) Not detected Stool Astrovirus (PCR) Not detected Stool Cryptosporidium PCR Not detected Stl E.coli Shiga Tox PCR Not detected St Sh/Enteroin Ecoli PCR Not detected Stool E coli O157 PCR Not Reportable Stl Enterotoxigenic E PCR Not detected Stool EPEC (PCR) Not detected Stl E. histolytica PCR Not detected Stool Giardia Lamblia PCR Not detected Stool Sapovirus (PCR) Not detected Stl P. shigelloides PCR Not detected St Y.enterocolitica PCR Not detected Stool Vibrio (PCR) Not detected Stl Vibrio cholerae PCR Not detected Stl Enteroaggr Ecoli PCR Not detected Stl Norovirus GI/GII PCR Detected H Chlamy pneumoniae PCR Adenovirus (PCR) B. pertussis DNA (PCR) B.parapertussis DNA PCR Campylobacter (PCR) Not detected C. difficile Tox (PCR) Detected H Coronavirus OC43 (PCR) Coronavirus HKU1 (PCR) Coronavirus 229E (PCR) SARS-CoV-2 (PCR) Coronavirus NL63 (PCR) Human Metapneumovir PCR Influenza Type A (PCR) Influenza Type B (PCR) M. pneumoniae (PCR) Parainfluenza 1 (PCR) Parainfluenza 2 (PCR) Parainfluenza 3 (PCR) Parainfluenza 4 (PCR) RSV (PCR) Entero/Rhino (PCR) Salmonella (PCR) Not detected 09/29/22 09/29/22 09/29/22 05:20 05:20 05:20 WBC RBC Hgb Hct MCV MCH MCHC RDW Plt Count Neut % (Auto) Lymph % (Auto) [place] % (Auto) Eos % (Auto) Baso % (Auto) Neut # (Auto) Lymph # (Auto) [place] # (Auto) Eos # (Auto) Baso # (Auto) Sodium 136 L Potassium 2.9 L Chloride 106 Carbon Dioxide 23 BUN 6 L Creatinine 0.45 L Estimated GFR > 60 BUN/Creatinine Ratio 13.3 Glucose 152 H D Hemoglobin A1c 8.4 H Lactate 0.9 Calcium 7.5 L Magnesium 1.5 L Total Bilirubin 0.4 AST 39 H ALT 44 H Alkaline Phosphatase 83 D Troponin I Total Protein 5.7 L Albumin 3.1 L Globulin 2.6 Albumin/Globulin Ratio 1.2 Stl C. cayetanensis PCR Stool Rotavirus (PCR) Stool Adenovirus (PCR) Stool Astrovirus (PCR) Stool Cryptosporidium PCR Stl E.coli Shiga Tox PCR St Sh/Enteroin Ecoli PCR Stool E coli O157 PCR Stl Enterotoxigenic E PCR Stool EPEC (PCR) Stl E. histolytica PCR Stool Giardia Lamblia PCR Stool Sapovirus (PCR) Stl P. shigelloides PCR St Y.enterocolitica PCR Stool Vibrio (PCR) Stl Vibrio cholerae PCR Stl Enteroaggr Ecoli PCR Stl Norovirus GI/GII PCR Chlamy pneumoniae PCR Adenovirus (PCR) B. pertussis DNA (PCR) B.parapertussis DNA PCR Campylobacter (PCR) C. difficile Tox (PCR) Coronavirus OC43 (PCR) Coronavirus HKU1 (PCR) Coronavirus 229E (PCR) SARS-CoV-2 (PCR) Coronavirus NL63 (PCR) Human Metapneumovir PCR Influenza Type A (PCR) Influenza Type B (PCR) M. pneumoniae (PCR) Parainfluenza 1 (PCR) Parainfluenza 2 (PCR) Parainfluenza 3 (PCR) Parainfluenza 4 (PCR) RSV (PCR) Entero/Rhino (PCR) Salmonella (PCR) PFSH Medical History Diabetes Diverticulitis Surgical History H/O exploratory laparotomy History of 2 sections Family History Mother Cancer Grandmother Diverticulitis Social History household members: significant other Smoking Status: Never smoker Assessment & Plan Assessment & Plan narrative: 1. Probable diverticulitis with C. diff colitis and norovirus enteritits - suspect diverticulitis leading to symptoms over the past two months, and likely acute enteritis recently. GI panel positive for C. diff and norovirus. - continue cipro/flagyl for now given probable diverticulitis, tachycardia, and leukocytosis. Started oral vanco today, needs 10 day course. Consider stopping cipro//flagyl depending on course. - may have a component of gastroparesis, but reports recent A1c of 7.6, and A1c is 8.4% here. - continue symptom relief with pain and nausea medications. - elevated lactate likely in setting of liver dysfunction and metformin use. s/p 3L of NS in ER, continued NS @ 100 cc per hour but can stop today with improved lactate. - hold home lisinopril for now. 2. Hypokalemia and hypomagnesemia, acute, present on admission - significant drop in potassium to 2.9 today, in setting of GI losses. Mg 1.5 as well. - given 60 meq oral potassium and oral mag today. Continue to follow. 3. type 2 diabetes - hold home metformin, victoza, and lisinopril - start 5 U lantus tonight, and sliding scale - okay for diabetic diet or as much as she can tolerate - hold home statin given transaminitis for now. 4. Transaminitis - likely in setting of norovirus infection, improving today. - continue to follow. 5. Obesity with BMI 35.9 - increases patient's risk of morbidity and mortality from her acute illness and contributes to diabetes - will order nutrition consultation for obesity and diabetes education. Code: Full, surrogate evelyn alegre DVT: Lovenox daily Dispo: hopeful for discharge home tomorrow, admit observation but will depend on symptoms and markers of infection. I have utilized all available immediate resources to obtain, update, or review the patient's current medications. COVID-19 COVID-19 status: Negative Time Spent With Patient Critical Care time: I spent a total of [] minutes of critical care time on this patient's care today; this time is exclusive of procedural time.
[2022-09-29] MEDS: ONDANSETRON 4 MG/2 ML INJ IV (17:22)
[2022-09-29] MEDS: INSULIN GLARGINE 100 UNIT/ML 3ML PEN SUBCUT (20:55)
[2022-09-30] MEDS: OXYCODONE IR 5 MG TABLET PO ×3 (00:06→14:04)
[2022-09-30 03:00] VITALS: O2SAT 98
[2022-09-30] MEDS: VANCOMYCIN 125 MG CAPSULE PO ×3 (03:19→14:16)
[2022-09-30 03:26] VITALS: BP 122/82; PULSE 75; RESP 19; TEMP 36.3; O2SAT 98
[2022-09-30] MEDS: metroNIDAZOLE 500 MG/100 ML PIGGYBACK 100 MG IV ×2 (05:33→14:03)
[2022-09-30] MEDS: ACETAMINOPHEN 325 MG TABLET 975 MG PO ×2 (06:32→14:04)
[2022-09-30 07:09] LABS: Add Manual Diff / Slide Review NO; Basophils Absolute Auto 0 /uL (0-100); Basophils Percent Auto 0.3 % (0-2); Eosinophils Absolute Auto 400 /uL (0-450); Eosinophils Percent Auto 7.2 % (2-4); Hematocrit 33.3 % (36-46); Lymphocytes Absolute Auto 1200 /uL (1100-4500); Lymphocytes Percent Auto 19.7 % (25-40); Mean Corpuscular Hemoglobin 28.6 PG (26-34); Mean Corpuscular Volume 86.6 fL (80-100); Monocytes Absolute Auto 700 /uL (0-900); Monocytes Percent Auto 11.7 % (3-14); Neutrophils Absolute Auto 3700 /uL (1500-7000); Neutrophils Percent Auto 61.1 % (50-75); Platelet Count 201 X10^3/uL (150-400); Red Blood Cell Count 3.84 X10^6/uL (4.0-5.2); Red Cell Distribution Width 14.1 % (11.6-14.8)
[2022-09-30 07:22] LABS: Alanine Aminotransferase 47 IU/L (<35); Albumin 3.4 g/dL (3.5-5.0); Albumin Globulin Ratio 1.3 (1.0-2.8); Alkaline Phosphatase 106 U/L (38-126); Aspartate Aminotransferase 44 IU/L (14-36); BUN Creatinine Ratio 6.7 (6-22); Bilirubin Total 0.3 mg/dL (0.2-1.3); Blood Urea Nitrogen 3 mg/dL (7-17); Calcium 8.1 mg/dL (8.4-10.2); Carbon Dioxide 22 mmol/L (22-32); Chloride 106 mmol/L (98-107); Estimated Glomerular Filt Rate > 60 mL/min (>60); Globulin 2.7 g/dL (1.7-4.1); Glucose 183 mg/dL (70-100); HEMOLYSIS < 15 (0-50); Magnesium 1.8 mg/dL (1.6-2.3); Potassium 3.8 mmol/L (3.4-5.1); Sodium 137 mmol/L (137-145); Total Protein 6.1 g/dL (6.3-8.2)
[2022-09-30 07:35] VITALS: BP 122/74; PULSE 70; RESP 18; TEMP 36.4; O2SAT 98
--- NOTE | 2022-09-30 08:03 | P.PN_ITS ---
Exam Vital Signs (past 8 hours): - 09/30/22 03:26 09/30/22 03:00 09/30/22 07:35 Temperature 97.3 F L 97.5 F L Pulse Rate 75 70 Respiratory Rate 19 18 Blood Pressure 122/82 122/74 Pulse Oximetry 98 98 98 Oxygen Delivery Method Room Air Oxygen Flow Rate 0 0 Oxygen Delivery Method Room Air Oxygen Flow Rate 0 Narrative Exam Narrative: GEN: no acute distress HEENT: moist mucous membranes, PERRL NECK: trachea midline, no JVD CV: regular rate and rhythm, no murmurs PULM: clear bilaterally ABD: soft, nontender, nondistended, no organomegaly EXT: warm and well perfused with no edema NEURO: awake, alert, oriented, no focal deficits Objective Labs Result Diagrams: 09/30/22 06:41 09/30/22 06:41 Labs: Laboratory Results - last 24 hr 09/30/22 09/30/22 06:41 06:41 WBC 6.0 RBC 3.84 L Hgb 11.0 L Hct 33.3 L MCV 86.6 MCH 28.6 MCHC 33.0 RDW 14.1 Plt Count 201 Neut % (Auto) 61.1 Lymph % (Auto) 19.7 L [place] % (Auto) 11.7 Eos % (Auto) 7.2 H Baso % (Auto) 0.3 Neut # (Auto) 3700 Lymph # (Auto) 1200 [place] # (Auto) 700 Eos # (Auto) 400 Baso # (Auto) 0 Sodium 137 Potassium 3.8 Chloride 106 Carbon Dioxide 22 BUN 3 L Creatinine 0.45 L Estimated GFR > 60 BUN/Creatinine Ratio 6.7 Glucose 183 H Calcium 8.1 L Magnesium 1.8 Total Bilirubin 0.3 AST 44 H ALT 47 H Alkaline Phosphatase 106 Total Protein 6.1 L Albumin 3.4 L Globulin 2.7 Albumin/Globulin Ratio 1.3 PFSH Medical History Diabetes Diverticulitis Surgical History H/O exploratory laparotomy History of 2 sections Family History Mother Cancer Grandmother Diverticulitis Social History household members: significant other Smoking Status: Never smoker Assessment & Plan Assessment & Plan narrative: 1. Probable diverticulitis with C. diff colitis and norovirus enteritits - suspect diverticulitis leading to symptoms over the past two months, and likely acute enteritis recently. GI panel positive for C. diff and norovirus. - continue cipro/flagyl for now given probable diverticulitis, tachycardia, and leukocytosis. Started oral vanco today, needs 10 day course. Consider stopping cipro//flagyl depending on course. - may have a component of gastroparesis, but reports recent A1c of 7.6, and A1c is 8.4% here. - continue symptom relief with pain and nausea medications. - elevated lactate likely in setting of liver dysfunction and metformin use. s/p 3L of NS in ER, continued NS @ 100 cc per hour but can stop today with impr ronak lactate. - hold home lisinopril for now. 2. Hypokalemia and hypomagnesemia, acute, present on admission - significant drop in potassium to 2.9 today, in setting of GI losses. Mg 1.5 as well. - given 60 meq oral potassium and oral mag today. Continue to follow. 3. type 2 diabetes - hold home metformin, victoza, and lisinopril - start 5 U lantus tonight, and sliding scale - okay for diabetic diet or as much as she can tolerate - hold home statin given transaminitis for now. 4. Transaminitis - likely in setting of norovirus infection, improving today. - continue to follow. 5. Obesity with BMI 35.9 - increases patient's risk of morbidity and mortality from her acute illness a nd contributes to diabetes - will order nutrition consultation for obesity and diabetes education. Code: Full, surrogate evelyn alegre DVT: Lovenox daily Dispo: hopeful for discharge home tomorrow, admit observation but will depend on symptoms and markers of infection. I have utilized all available immediate resources to obtain, update, or review the patient's current medications. COVID-19 COVID-19 status: Negative Time Spent With Patient Critical Care time: I spent a total of [] minutes of critical care time on this patient's care today; this time is exclusive of procedural time.
[2022-09-30] MEDS: CIPROFLOXACIN 400 MG/200 ML PIGGYBACK 200 MG IV (08:41)
[2022-09-30] MEDS: INSULIN LISPRO 100 UNIT/ML 3ML VIAL SUBCUT ×2 (08:41→12:03)
[2022-09-30] MEDS: ENOXAPARIN 40 MG/0.4 ML SYRINGE SUBCUT (08:41)
[2022-09-30] MEDS: CLOTRIMAZOLE 1% CRM 30 GM 1 APPLIC TOP (08:42)
[2022-09-30 11:00] VITALS: BP 116/66; PULSE 71; RESP 18; TEMP 36.4; O2SAT 98; O2SAT 99
[2022-09-30 12:35] LABS: C difficie Toxins A and B, EIA Negative (Negative)
[2022-09-30 15:00] VITALS: BP 133/70; PULSE 65; RESP 18; TEMP 35.8; O2SAT 98; O2SAT 99
--- NOTE | 2022-09-30 15:46 | CM.DPC ---
DCP Discharge Home Per MD, pt's cultures returned and stable for d/c home today with no identified barriers to discharge. Pt on oral abx for Cdiff and independent at baseline and visiting with spouse and comfortable with discharge back to [place] today. Plan: Patient to d/c home via spouse POV and outpt follow up and no further SW needs at this time. TRENA Da Silva
--- NOTE | 2022-09-30 16:33 | PC.NURSE ---
Discharge note: Ambulating independently in room, voiding QS. Patient discharged home per MD orders. Discussed importance of F/U with PMD, antibiotic adherence and s/sx of worsening infection. Patient verbalized understanding of discharge instructions. Home via private vehicle accompanied by spouse.
--- NOTE | 2022-09-30 18:44 | P.DS_ITS ---
History of Present Illness History of Present Illness Date Patient Seen: 09/30/22 Time Patient Seen: 13:00 Chief complaint: N high sugar rapid heartbeat Narrative: 52 year old female with type 2 diabetes and prior diverticulitis who presents with lower abdominal pain and emesis for the past day. She ate a couple of donuts from [employer] here locally, along with a couple of salads the last couple of days while visiting from [place]. Overnight she developed nausea and NBNB emesis (clear to yellow), and later diarrhea. She also reports 8/10 bilateral lower abdominal pain. Pain is described as achy, worsened with food intake and even water intake, improved only with some pain medications thus far. With the emesis she did develop a burning epigastric pain as well. Diarrhea has been watery, no blood. She further reports off and on emesis over the past few months, primarily after large meals but sometimes not related. She also with this has had loose stools and less severe lower abdominal pain over the past two months. She developed some headache today, along with chills but no overt fever. No one else has been sick around her and her spouse ate the same meal and is not feeling ill. She reports palpitations primarily when vomiting, but no chest pain or shortness of breath. She feels a bit better after nausea medications and was able to keep some water down and medications. In the emergency room, patient was mildly tachycardic but the remainder of her vitals were unremarkable. Tempature was 100.2 on arrival to the hospital floor. Lab evaluation was notable for WBC 22.9 with 93% neutrophils. Chemistries were notable for glucose 329, LA 2.4 after IV fluids had been given, mild transaminitis with AST 52, ALT 54. Lipase was 171. UA was not indicative of infection. Respiratory panel was negative. CT scan showed diffuse both colitis and enteritis and diverticulae. Patient was admitted for further monitoring given tachycardia, inability to tolerate much oral intake, and risk for worsening illness. Discharge Providers Provider Date of admission: 09/28/22 14:44 Discharge Date: 09/30/22 Primary care physician: Doctor Danielle MD Consults: 09/28/22 17:46 Consult to Dietitian, Adult Routine Comment: Reason For Exam: obesity and diabetes Discharge provider: Chacho Brambila DO Summary Hospital Course Discharge Diagnosis: 1. Community acquired C. diff colitis, norovirus enteritis and possible diverticulitis 2. Hypokalemia and hypomagnesemia, acute, present on admission, resolved 3. type 2 diabetes, a1c 8.4% 4. Transaminitis 5. Obesity with BMI 35.9 Hospital Course: Admitted for 2 months of abd pain and diarrhea. Found to be C. diff PCR positive toxin negative, norovirus positive and with enteritis and possible diverticulitis on CT exam. She improved significantly on po vancomycin but also recieved cipro and flagyl. Diarrhea slowed down and abd pain improved. Spoke with ID at [facility] about treating for C. diff and diverticulitis, and we agreed that she improved very quickly making diverticulitis less likely and would benefit from not being on abx while treated for C. diff. Decision was made to discharge just on po vanc for 10 days. Mag and K were replaced. A1c was 8.4% and recommended she speak with PCP about adjusting her DM2 meds. Time Spent with Patient Time spent: Greater than 30 minutes Exam Vital Signs (past 8 hours): - 09/30/22 11:00 09/30/22 11:00 09/30/22 15:00 Temperature 97.6 F 96.5 F L Pulse Rate 71 65 Respiratory Rate 18 18 Blood Pressure 116/66 133/70 Pulse Oximetry 99 98 99 Oxygen Delivery Method Room Air Oxygen Flow Rate 0 0 09/30/22 15:00 Temperature Pulse Rate Respiratory Rate Blood Pressure Pulse Oximetry 98 Oxygen Delivery Method Room Air Oxygen Flow Rate Oxygen Delivery Method Room Air Oxygen Flow Rate 0 Narrative Exam Narrative: General:? Patient is well developed and well nourished, in no distress at this time HEENT:? Normocephalic, atraumatic, extraocular muscles intact, oral pharynx is clear and mucous membranes are dry, Neck: supple and symmetric, trachea is midline, no cervical adenopathy. Negative for JVD Chest:? Normal AP diameter and contour without kyphoscoliosis, no tachypnea, equal chest rise bilaterally. Lungs:? CTA b/l no wheezing rhonchi or rales. Cardio:?tachycardic but regular rhythm no m/r/g. Abdomen: soft, tenderness mainly in epigastric region. Improved tenderness of lower quadrants. Active bowel tones. Musculoskeletal:? Muscle strength and tone are equal within normal limits, no deformity. Extremities: No edema or joint effusions. No cyanosis or clubbing. Skin:? Pale,? Warm to touch,dry and intact without rashes, ulcerations or petechiae except for mild fungal rash suprapubic abdominal area, about 2-3 cm in diameter Neuro:? Alert and orientated x3,? sensation to touch intact in all extremities, no gross deficits noted of cranial nerves. Psych:? Patient has a well-kept appearance, appropriate affect, mental status attitude thought context and judgment are appropriate for age. Objective Labs Result Diagrams: 09/30/22 06:41 09/30/22 06:41 Labs: Laboratory Results - last 24 hr 09/28/22 09/30/22 09/30/22 18:39 06:41 06:41 WBC 6.0 RBC 3.84 L Hgb 11.0 L Hct 33.3 L MCV 86.6 MCH 28.6 MCHC 33.0 RDW 14.1 Plt Count 201 Neut % (Auto) 61.1 Lymph % (Auto) 19.7 L [place] % (Auto) 11.7 Eos % (Auto) 7.2 H Baso % (Auto) 0.3 Neut # (Auto) 3700 Lymph # (Auto) 1200 [place] # (Auto) 700 Eos # (Auto) 400 Baso # (Auto) 0 Sodium 137 Potassium 3.8 Chloride 106 Carbon Dioxide 22 BUN 3 L Creatinine 0.45 L Estimated GFR > 60 BUN/Creatinine Ratio 6.7 Glucose 183 H Calcium 8.1 L Magnesium 1.8 Total Bilirubin 0.3 AST 44 H ALT 47 H Alkaline Phosphatase 106 Total Protein 6.1 L Albumin 3.4 L Globulin 2.7 Albumin/Globulin Ratio 1.3 C. diff Toxin A&B (EIA) Negative [facility] Medical History Diabetes Diverticulitis Surgical History H/O exploratory laparotomy History of 2 sections Family History Mother Cancer Grandmother Diverticulitis Social History household members: significant other Smoking Status: Never smoker Discharge Plan Discharge Plan Patient Disposition: Home Provider Discharge Comment: You were found to have C. diff which is a gut infect ion that requires oral antibiotics. We gave you this and you improved, and will need to continue taking it 4x per day for 9 more days. Discharge orders & Medications Prescriptions: New vancomycin 125 mg capsule 125 mg PO QID 9 Days Qty: 36 0RF Rx Instructions: start evening of 09/30 Continued atorvastatin 40 mg tablet 40 mg PO DAILY Label Comments: Take 1 tablet by mouth every evening. paroxetine HCl 10 mg tablet 10 mg PO DAILY metformin 1,000 mg tablet 1,000 mg PO BID Label Comments: Take 1 tablet by mouth 2 times daily (with breakfast & dinner). lisinopril 5 mg tablet 5 mg PO DAILY Victoza 3-Iggy 0.6 mg/0.1 mL (18 mg/3 mL) pen injector 1.8 mg SUBCUT DAILY Label Comments: INJECT 1.8 MG UNDER THE SKIN ONE TIME DAILY Follow up/Referrals: Doctor Santos MD [Primary Care Provider] - Visit Report/Discharge Packet Instructions: DI for Clostridioides difficile Infection Discharge Data Primary Care Provider: Doctor Danielle
== END 2022-09-30 17:00 | disposition home or self-care (01) | DRG 372 ==
LOC: ED 10:06 → AC 14:46
PROVIDERS: Admitting Provider Internal Medicine; Emergency Provider Emergency Medicine; Referring Provider Emergency Medicine; Visit Provider Internal Medicine
DX: A04.72 Enterocolitis due to Clostridium difficile, not specified as recurrent (principal); K57.32 Diverticulitis of large intestine without perforation or abscess without bleeding; A08.11 Acute gastroenteropathy due to Norwalk agent; R00.0 Tachycardia, unspecified; E11.9 Type 2 diabetes mellitus without complications; E66.9 Obesity, unspecified; E86.0 Dehydration; E87.6 Hypokalemia; E83.42 Hypomagnesemia; Z79.85 Long-term (current) use of injectable non-insulin antidiabetic drugs; Z68.35 Body mass index [BMI] 35.0-35.9, adult; Z79.84 Long term (current) use of oral hypoglycemic drugs; Z20.822 Contact with and (suspected) exposure to COVID-19
CPT/HCPCS: 36415; 71045; 74177; 80053; 81003; 81015; 82962; 83036; 83605; 83690; 83735; 84484; 85025; 87040; 87324; 87507; 87633; 87635; 93005; 96361; 96365; 96366; 96375; 96376; 99284; 99285; C9803; C9113; J0696; J0744; J1650; J1815; J2405; Q9967